=== PATIENT | female | born 1960 | race African-American/Black ===

== ENCOUNTER 2020-08-17 17:07 | Inpatient (IN) | payer SELFPAY ==
[~2020-08-17] VITALS: Ht 149.9 cm; Wt 93.0 kg
[2020-08-17] MEDS ORDERED: NITROGLYCERIN 0.4MG TABLET SL SL PRN (18:30)
[2020-08-17] MEDS ORDERED: ASPIRIN 81MG TABLET PO ONE (18:30)
[2020-08-17 18:32] LABS: BASOPHILS % 0.8 % (0.0-2.0); EOSINOPHILS % 3.6 % (0.0-5.0); HEMATOCRIT. 42.3 % (36.0-48.0); HEMOGLOBIN. 13.8 g/dL (12.0-16.0); LYMPHOCYTES % 31.2 % (20.0-50.0); MEAN CORPUSCULAR HEMOGLOBIN 27.4 pg (28.0-32.0); MEAN CORPUSCULAR VOLUME 84.1 fL (81.0-99.0); MEAN PLATELET VOLUME 8.1 fl (7.4-10.4); MONOCYTES % 6.6 % (2.0-8.0); NEUTROPHILS % 57.8 % (40.0-76.0); PLATELET 220 x1000/uL (130-400); RED BLOOD CELL COUNT 5.03 mill/uL (4.2-5.4); RED CELL DISTRIBUTION WIDTH 13.4 % (11.6-14.6)
[2020-08-17 18:37] LABS: CHLORIDE 109 mEq/L (98-107)
[2020-08-17 18:42] LABS: D-DIMER 0.2 mg/L FEU (<0.50); PARTIAL THROMBOPLASTIN TIME 28.2 sec (23.4-31.0); PROTHROMBIN TIME 10.7 sec (9.6-11.0)
[2020-08-17] MEDS ORDERED: ONDANSETRON HCL 4MG/2ML INJ IV PRN (21:00)
[2020-08-17] MEDS ORDERED: ACETAMINOPHEN 325MG TABLET PO PRN (21:00)
[2020-08-17] MEDS ORDERED: HYDROCODONE/ACETAMINOPHEN 5/325MG TABLET PO PRN (21:00)
[2020-08-17] MEDS ORDERED: IPRATROPIUM/ALBUTEROL 0.5-3(2.5)MG/3ML NEB NEB PRN (21:00)
[2020-08-17] MEDS ORDERED: MAGNESIUM/ALUMINUM HYDROXIDE/SIMETHICONE 30ML UDC PO PRN (21:00)
[2020-08-17] MEDS ORDERED: CLONIDINE 0.1MG TABLET PO PRN (21:00)
[2020-08-17] MEDS ORDERED: DOCUSATE SODIUM 100MG CAPSULE PO PRN (21:00)
[2020-08-17] MEDS: ENOXAPARIN 40MG/0.4ML SYR SUBCUT SCH (22:19)
[2020-08-17 23:30] LABS: CREATINE KINASE 151 IU/L (26-192)
[2020-08-17 23:31] LABS: CREATINE KINASE MB FRACTION < 1.0 ng/mL (0.5-3.6)
[2020-08-18] VITALS: BP 141/81
[2020-08-18 00:53] VITALS: BP 141/81
[2020-08-18 04:00] VITALS: BP 141/74
[2020-08-18 06:16] LABS: BASOPHILS % 0.6 % (0.0-2.0); EOSINOPHILS % 4.1 % (0.0-5.0); HEMATOCRIT. 40.7 % (36.0-48.0); HEMOGLOBIN. 13.3 g/dL (12.0-16.0); MEAN CORPUSCULAR HEMOGLOBIN 27.7 pg (28.0-32.0); MEAN CORPUSCULAR VOLUME 84.6 fL (81.0-99.0); MONOCYTES % 8.3 % (2.0-8.0); PLATELET 207 x1000/uL (130-400); RED BLOOD CELL COUNT 4.81 mill/uL (4.2-5.4); RED CELL DISTRIBUTION WIDTH 13.6 % (11.6-14.6)
[2020-08-18 07:07] LABS: CHLORIDE 108 mEq/L (98-107)
[2020-08-18 07:16] LABS: HDL CHOLESTEROL 51 mg/dL (40-59)
[2020-08-18 07:21] LABS: CREATINE KINASE 123 IU/L (26-192)
[2020-08-18 07:31] LABS: LDL CHOLESTEROL 124 mg/dL (5-100)
[2020-08-18 07:32] LABS: CREATINE KINASE MB FRACTION < 1.0 ng/mL (0.5-3.6)
[2020-08-18 08:00] VITALS: BP 138/81
[2020-08-18 08:20] LABS: CLARITY URINE CLEAR (CLEAR); COLOR URINE YELLOW (YELLOW); KETONES URINE NEGATIVE (NEGATIVE); LEUKOCYTE ESTERASE URINE 2+ (NEGATIVE); NITRITE URINE NEGATIVE (NEGATIVE); OCCULT BLOOD URINE NEGATIVE (NEGATIVE); PH URINE 5.5 (4.5-8.0); PROTEIN URINE NEGATIVE (NEGATIVE); SPECIFIC GRAVITY URINE 1.016 (1.005-1.030); UROBILINOGEN URINE 0.2 E.U./dL (0.2-1.0)
[2020-08-18 09:34] LABS: *AMPHETAMINES SCREEN URINE NEGATIVE (NEGATIVE); *BARBITURATES SCREEN URINE NEGATIVE (NEGATIVE)
[2020-08-18 09:35] LABS: *BENZODIAZEPINES SCREEN URINE NEGATIVE (NEGATIVE); *COCAINE SCREEN URINE NEGATIVE (NEGATIVE); CANNABINOID URINE SCREEN NEGATIVE (NEGATIVE); METHADONE URINE SCREEN NEGATIVE (NEGATIVE); OPIATES URINE SCREEN NEGATIVE (NEGATIVE); PHENCYCLIDINE URINE SCREEN NEGATIVE (NEGATIVE)
[2020-08-18] MEDS ORDERED: REGADENOSON 0.4 MG/5 ML IV SCH (10:30)
[2020-08-18] MEDS ORDERED: REGADENOSON 0.4 MG/5 ML IV ONE (12:29)
[2020-08-18] MEDS ORDERED: CEFTRIAXONE 1 G PREMIX 50 ML IV SCH (14:00)
[2020-08-18] MEDS ORDERED: CEFTRIAXONE 1,000 MG in DEXTROSE 5% WATER 50 ML IV SCH (15:00)
[2020-08-18] MEDS: AMLODIPINE 5MG TABLET PO SCH ×2 (15:16→20:31)
[2020-08-18] MEDS: ASPIRIN 81MG EC TABLET PO SCH (15:16)
[2020-08-18 16:00] VITALS: BP 134/72
[2020-08-18 20:00] VITALS: BP 137/76
[2020-08-18] MEDS: ENOXAPARIN 40MG/0.4ML SYR SUBCUT SCH (20:30)
[2020-08-18] MEDS ORDERED: ATORVASTATIN CALCIUM 20MG TABLET PO SCH (21:00)
[2020-08-19] VITALS: BP 142/79
[2020-08-19 04:00] VITALS: BP 107/71
[2020-08-19 08:00] VITALS: BP 130/69
[2020-08-19] MEDS: ASPIRIN 81MG EC TABLET PO SCH (09:02)
[2020-08-19] MEDS: AMLODIPINE 5MG TABLET PO SCH (09:02)
[2020-08-19] MEDS ORDERED: ATOR20TA PO (11:09)
[2020-08-19] MEDS ORDERED: AMLO5TAB88 PO (11:09)
[2020-08-19] MEDS ORDERED: ASPI-1406 PO (11:09)
[2020-08-19 11:49] VITALS: BP 130/69
[2020-08-19] MEDS ORDERED: CYCL10TA7 MT (13:58)
== END 2020-08-19 13:30 | disposition home or self-care (01) | DRG 198 ==
LOC: ER 17:07 → MICUSO 20:19 → EDBEDREQ 20:21 → 5WST 23:46
PROVIDERS: ADMIT Internal Medicine; ATTEND Internal Medicine
DX: I24.9 Acute ischemic heart disease, unspecified (principal); I10 Essential (primary) hypertension; E78.5 Hyperlipidemia, unspecified; N39.0 Urinary tract infection, site not specified; Z20.822 Contact with and (suspected) exposure to COVID-19; Z79.899 Other long term (current) drug therapy; Z82.49 Family history of ischemic heart disease and other diseases of the circulatory system; Z79.82 Long term (current) use of aspirin; Z88.2 Allergy status to sulfonamides
CPT/HCPCS: 36415; 71045; 78452; 80053; 80061; 80305; 81003; 82550; 82553; 83880; 84443; 84484; 85025; 85379; 87426; 93005; 93017; 93306; 99285; A9500; J0696; J1650; J2785; J7060